=== PATIENT | female | born 1955 | race Caucasian/White ===

== ENCOUNTER 2016-11-04 18:52 | Emergency (ER) | payer OTHER ==
--- NOTE | 2016-11-04 19:39 | RAD ---
LEFT RIBS: 11/04/16 Three views obtained. HISTORY: Fall with injury to left chest. There appears to be displaced fractures of posterior left 8th and 9th ribs. Age of these fractures a re indeterminate. There is suggestion of small left effusion blunting the CP angle. Mild left basila r atelectasis. IMPRESSION: Evidence of fractures posterior to left 8th and 9th ribs. POS: [facility]
--- NOTE | 2016-11-04 19:48 | RAD ---
CERVICAL SPINE: 11/04/16 Three views obtained. HISTORY: Fall with injury to neck. The cervical vertebrae maintain normal height and alignment. Disc spaces are preserved. Mild degener ative change noted. No evidence of acute fracture. IMPRESSION: There are mild degenerative changes of the cervical spine. No acute abnormality identified. POS: [facility]
[2016-11-04] MEDS ORDERED: Naproxen 500 MG TAB ONE (19:49)
--- NOTE | 2016-11-04 19:51 | RAD ---
LEFT SHOULDER: 11/04/16 Three views obtained. HISTORY: Shoulder pain. No evidence of fracture. AC joint normally aligned. IMPRESSION: No acute abnormality identified. POS: [facility]
[2016-11-04] MEDS ORDERED: HYDROcodone/Acetaminophen 10/325 mg Tablet ONE (20:23)
[2016-11-04] MEDS ORDERED: Ondansetron ODT 4 MG TAB ONE (20:23)
[2016-11-04] MEDS ORDERED: Morphine Sulfate 2 MG/ML SYRINGE ONE (20:23)
== END 2016-11-04 20:50 | disposition home or self-care (01) ==
LOC: MADERS 18:52
DX: S22.42XA Multiple fractures of ribs, left side, initial encounter for closed fracture (principal); S40.012A Contusion of left shoulder, initial encounter; F32.9 Major depressive disorder, single episode, unspecified; F41.9 Anxiety disorder, unspecified; Z79.899 Other long term (current) drug therapy; W19.XXXA Unspecified fall, initial encounter
CPT/HCPCS: 72040; 96372; J2270; Q0162

== ENCOUNTER 2016-12-15 11:05 | Outpatient (CLI) | payer OTHER ==
--- NOTE | 2016-12-15 12:40 | RAD ---
LEFT RIBS TWO VIEWS: History: 61-year-old female with left rib fracture six weeks ago. Comparison: 11-04-16 FINDINGS: Minimally displaced left 8th and 9th posterior rib fractures are noted. These show evidence of heali ng. No overt acute rib fracture. No pneumothorax or pleural effusion. IMPRESSION: Stable appearing left 8th and 9th rib fractures. No acute rib fracture. No pneumothorax or pleural e ffusion. POS: [facility]
== END 2016-12-15 11:06 | disposition home or self-care (01) ==
LOC: MADRAD 11:05
PROVIDERS: ATTEND Family Medicine
DX: S22.39XA Fracture of one rib, unspecified side, initial encounter for closed fracture (principal)

== ENCOUNTER 2018-12-23 12:10 | Outpatient (CLI) | payer OTHER ==
--- NOTE | 2018-12-23 12:26 | RAD ---
EXAM: Chest 2 views: HISTORY: Fall with chest pain COMPARISON: 04/01/2014 FINDINGS: There is a normal-sized cardiomediastinal silhouette. There is no evidence of consolidation, mass, or pleural effusion. The bones are unremarkable. There is a calcified right breast implant. IMPRESSION: No evidence of acute cardiopulmonary disease
--- NOTE | 2018-12-23 12:46 | RAD ---
EXAM: Right Rib series HISTORY: Fall with right rib pain COMPARISON: None FINDINGS: Multiple views of the right ribs shows no evidence of displaced rib fracture. No underlying pleural t hickening or pneumothorax are seen. The patient has a right breast implant. IMPRESSION: 1. No evidence of displaced rib fracture.
== END 2018-12-23 12:11 | disposition home or self-care (01) ==
LOC: MADRAD 12:10
PROVIDERS: ATTEND Family Medicine
DX: S20.211A Contusion of right front wall of thorax, initial encounter (principal)
CPT/HCPCS: 71046

== ENCOUNTER 2021-01-12 10:13 | Outpatient (CLI) | payer OTHER, MEDICARE ==
[2021-01-12 10:53] LABS: ALT (SGPT) 8 U/L (8-55); AST (SGOT) 18 U/L (5-34); Albumin 4.3 g/dL (3.4-4.8); Alkaline Phosphatase 82 U/L (40-110); Anion Gap 15 mmol/L (10-20); BUN (Urea Nitrogen) 9 mg/dL (9.8-20.1); Bilirubin, Total 0.4 mg/dL (0.2-1.2); Calc. Creatinine Clearance 0 mL/min (70-130); Calcium 9.4 mg/dL (7.8-10.44); Carbon Dioxide 25 mmol/L (23-31); Cardiac Risk 2.8 (Less than 4.5); Chloride 101 mmol/L (98-107); Cholesterol 234 mg/dl (< 200 Desired); Globulin 2.8 g/dL (2.4-3.5); Glucose 102 mg/dL (80-115); HDL Cholesterol 85 mg/dL (>60 Neg Risk); LDL Cholesterol, Calculated 140 mg/dL; Potassium 4.5 mmol/L (3.5-5.1); Protein, Total 7.1 g/dL (5.8-8.1); Sodium 136 mmol/L (136-145); Triglycerides 47 mg/dL (Less than 150)
[2021-01-12 10:54] LABS: #Basophils 0.1 thou/uL (0.0-0.2); #Eosinphils 0.1 thou/uL (0.0-0.7); #Lymphocytes 1.2 thou/uL (1.20-3.40); #Monocytes 0.4 thou/uL (0.11-0.59); #Neutrophils 3.1 thou/uL (1.40-6.50); %Basophils 1.5 % (0.0-1.0); %Eosinophils 1.5 % (0.0-10.0); %Lymphocytes 24.5 % (21.0-51.0); %Monocytes 8.6 % (0.0-10.0); %Neutrophils 63.9 % (42.0-75.0); Hemoglobin 13.1 g/dL (12.0-16.0); Mean Corpuscular HGB CONC 32.2 g/dL (32.0-36.0); Mean Corpuscular Hemoglobin 29.6 pg (27.0-31.0); Mean Corpuscular Volume 91.7 fL (78.0-98.0); Mean Platelet Volume 8.3 fL (7.4-10.4); Platelet Count 263 thou/uL (130-400); RBC Distribution Width 12.6 % (11.5-14.5); Red Blood Cell (RBC) Count 4.43 mill/uL (4.20-5.40); White Blood Cell (WBC) Count 4.8 thou/uL (4.8-10.8)
== END 2021-01-12 10:14 | disposition home or self-care (01) ==
LOC: MADLAB 10:13
PROVIDERS: ATTEND Family Medicine
DX: R55 Syncope and collapse (principal); I10 Essential (primary) hypertension
CPT/HCPCS: 36415; 80053; 80061; 84443; 85025; 93005; 93010

== ENCOUNTER 2024-01-13 09:55 | Outpatient (CLI) | payer MEDICARE, OTHER | END 2024-01-13 09:56 | disposition home or self-care (01) | LOC: MADRAD 09:55 | PROVIDERS: ATTEND Neurological Surgery | DX: S12.9XXA Fracture of neck, unspecified, initial encounter (principal); Z98.890 Other specified postprocedural states | CPT/HCPCS: 72040 ==

== ENCOUNTER 2024-03-03 16:23 | Outpatient (CLI) | payer MEDICARE, OTHER | END 2024-03-03 16:24 | disposition home or self-care (01) | LOC: MADRAD 16:23 | PROVIDERS: ATTEND Neurological Surgery | DX: S12.9XXA Fracture of neck, unspecified, initial encounter (principal); M47.812 Spondylosis without myelopathy or radiculopathy, cervical region; Z98.1 Arthrodesis status; Z98.890 Other specified postprocedural states | CPT/HCPCS: 72040 ==

== ENCOUNTER 2024-06-03 10:18 | Outpatient (CLI) | payer MEDICARE, OTHER | END 2024-06-03 10:19 | disposition home or self-care (01) | LOC: MADRAD 10:18 | PROVIDERS: ATTEND Neurological Surgery | DX: S12.9XXA Fracture of neck, unspecified, initial encounter (principal) | CPT/HCPCS: 72040 ==